=== PATIENT | female | born 1955 | race Caucasian/White ===

== ENCOUNTER 2024-06-10 04:18 | Emergency (ER) | payer OTHER ==
[2024-06-10] MEDS ORDERED: ONDANSETRON 4 MG/2 ML VIAL ONE (05:17)
[2024-06-10] MEDS ORDERED: METHYLPREDNISOLONE 125 MG INJ ONE (05:17)
[2024-06-10] MEDS ORDERED: NA CHLORIDE 0.9% 500 ML ONE (05:18)
[2024-06-10] MEDS ORDERED: MORPHINE 4 MG/ML SYR ONE (05:18)
[2024-06-10] MEDS ORDERED: NA CHLORIDE 0.9% 1,000 ML ONE (05:18)
[2024-06-10 05:45] LABS: Absolute Lymphocytes (CBC) 0.4 K/uL (0.7-4.9); Absolute Monocytes 0.9 K/uL (0.1-1.3); Absolute Neutrophil 8.9 K/uL (1.8-8.0); Basophils % 0.2 % (0-1.3); Eosinophils % 0.1 % (0-4.4); Hematocrit 41.4 % (36.0-45.0); Hemoglobin 13.9 g/dL (12.0-15.0); Lymphocytes % 4.1 % (15.3-44.8); MCH 29.7 pg (27.0-35.0); MCHC 33.7 g/dL (32.0-36.0); MCV 88.2 fL (80-100); MPV 7.5 fL (7.6-11.3); Monocytes % 8.7 % (3.3-12.3); Neutrophils % 86.9 % (41.7-73.7); Nucleated Red Blood Cells % 0.1 % (0-0); Platelets 311 thou/uL (152-406); RBC Red Blood Cell Count 4.69 M/uL (3.86-4.86); Red Cell Distribution Width 14.5 % (12.1-15.2)
[2024-06-10 05:50] LABS: PT Prothrombin Time 11.7 SECONDS (10-13.0); Protime INR 1.03
[2024-06-10 06:06] LABS: ALT/SGPT 55 U/L (13-56); AST/SGOT 55 U/L (15-37); Albumin 3.5 g/dL (3.4-5.0); Albumin/Globulin Ratio 0.9 (1.1-1.8); Alkaline Phosphatase 111 U/L (45-117); Anion Gap 9.7 mEq/L (5.0-15.0); BUN Blood Urea Nitrogen 7 mg/dL (7-18); Bicarbonate 25 mEq/L (21-32); Bilirubin Direct 0.2 mg/dL (0-0.2); Bilirubin Indirect, Calculated 0.4 mg/dL (0.2-0.8); Bilirubin Total 0.6 mg/dL (0.2-1.0); Globulin 4.1 g/dL (2.3-3.5); Glomerular Filtration Rate 89 ml/min (=/>90); Glucose Level 172 mg/dL (74-106); Magnesium 2.2 mg/dL (1.6-2.4); NT PRO-BNP 338 pg/mL (<125); Potassium 3.7 mEq/L (3.5-5.1); Protein, Total 7.6 g/dL (6.4-8.2); Sodium Level 134 mEq/L (136-145)
[2024-06-10 06:10] LABS: Thyroid Stimulating Hormone 1.56 uIU/mL (0.358-3.740)
[2024-06-10 06:11] LABS: Troponin High Sensitivity < 3.0 pg/mL (<58.9)
--- NOTE | 2024-06-10 07:41 | RAD REPORT ---
EXAM: CT CHEST, ABDOMEN AND PELVIS WITHOUT CONTRAST CLINICAL INDICATION: CHEST PAIN TECHNIQUE: CT chest, abdomen and pelvis was performed without contrast, as per department protocol. A xial, sagittal and coronal reconstructions were obtained. One or more of the following dose reduction techniques were used: Automated exposure control, adjustment of the mA and/or kV according to patient size, and/or iterative reconstruction. Unless otherwise specified, incidental findings do not require dedicated imaging follow-up. Examination is limited by the lack of intravenous contrast material. COMPARISON: No prior exam. FINDINGS: LUNGS: Emphysematous changes are present throughout the lungs. Subpleural areas of fibrosis also pres ent. PLEURA: No pleural effusion. No pneumothorax. Mild pericardial fluid. MEDIASTINUM AND LYMPH NODES: No mediastinal mass or fluid collection. Normal size mediastinal, hilar, and axillary lymph nodes. OSSEOUS STRUCTURES AND CHEST WALL: Intact. LIVER: Normal in size and contour. No focal lesion or biliary dilatation. Grossly unremarkable gallbl adder. PANCREAS: No mass, ductal dilation, or sravan-pancreatic fluid. SPLEEN: Normal size. No focal lesion. ADRENALS: Normal; no mass. KIDNEYS: Normal size and contour. No hydronephrosis. URINARY BLADDER: Normal contour. GASTROINTESTINAL TRACT: No bowel obstruction, free air, significant free fluid or abscess. Moderate s tool is retained throughout the colon. APPENDIX: Normal appendix. LYMPH NODES: No lymphadenopathy. MUSCULOSKELETAL: No acute or suspicious osseous abnormality. OTHER: IMPRESSION: No acute or significant abnormalities seen in the chest, abdomen or pelvis. Mild COPD.
--- NOTE | 2024-06-10 07:44 | RAD REPORT ---
EXAM: XR Chest, 1 View CLINICAL HISTORY: The patient is 68 years old and is Female; Chest pain. TECHNIQUE: Single view of the chest. COMPARISON: No relevant prior studies available. FINDINGS: Lungs: No pulmonary vascular congestion or consolidation. Pleural space: Unremarkable. No pneumothorax. Heart: Unremarkable. No cardiomegaly. Mediastinum: Unremarkable. Bones/joints: No acute fracture. Upper abdomen: No free air in the visualized upper abdomen. IMPRESSION: No acute cardiopulmonary process identified. Electronically signed by: Vera Perez MD 06/10/2024 07:11 AM CDT RP V2 Due to temporary technical issues with the PACS/Risk I/O reporting system, reports are being nicolette d by the in-house radiologist without review as a courtesy to ensure prompt reporting. The interpreting radiologist is fully responsible for the content of the report. Transcribed Date/Time: 06/10/2024 7:43 AM
[2024-06-10 07:55] LABS: Differential Total Cells Count 100; Lymphocytes 4 % (15-42); Monocytes 6 % (0-10); Platelet Estimate ADEQ; Segmented Neutrophils 90 % (40-80)
[2024-06-10 07:56] LABS: Blood Morphology Comment NOT SEEN (NOT SEEN)
--- NOTE | 2024-06-10 08:49 | EDPHYS ---
Physician Documentation [facility] Name: Tessy Jackson Age: 68 yrs Sex: Female : 1955 Arrival Date: 06/10/2024 Time: 04:18 Bed 17 Private MD: ED Physician Tab Dinh HPI: 06/10 04:40 This 68 yrs old Female presents to ER via Unassigned with complaints of Breathing sp4 Difficulty, Pain. 08:09 Six 8-year-old female with history of chronic tobacco use presents with acute moderate sp4 to severe chest pain. 08:09 Patient states pain onset was 6 days ago and has intensified today. Patient reports sp4 history of tobacco use half a pack a day. . Historical: - Allergies: 06:39 Iodine; aa10 06:39 Fish Containing Products; aa10 06:39 Peanut; aa10 - Immunization history:: Adult Immunizations up to date. - Infectious Disease History:: Denies. - Family history:: not pertinent. - Social history:: Smoking status: unknown. ROS: 08:09 Constitutional: Negative for fever, chills, and weight loss, positive for acute onset sp4 chest pain 08:09 All other systems are negative, Exam: 08:09 Constitutional: This is a well developed, well nourished patient who is awake, alert, sp4 and in no acute distress. Head/Face: Normocephalic, atraumatic. Eyes: Pupils equal round and reactive to light, extra-ocular motions intact. Lids and lashes normal. Conjunctiva and sclera are not injected. Cornea within normal limits. Periorbital areas with no swelling, redness, or edema. ENT: Nares patent. No nasal discharge, no septal abnormalities noted. Tympanic membranes are normal and external auditory canals are clear. Oropharynx with no redness, swelling, or masses, exudates, or evidence of obstruction, uvula midline. Mucous membranes moist. Neck: Trachea midline, no thyromegaly or masses palpated, and no cervical lymphadenopathy. Supple, full range of motion without nuchal rigidity, or vertebral point tenderness. Chest/axilla: Normal chest wall appearance and motion. Nontender with no deformity. No lesions are appreciated. Cardiovascular: Regular rate and rhythm with a normal S1 and S2. No gallops, murmurs, or rubs. Normal PMI, no JVD. No pulse deficits. Respiratory: Lungs have equal breath sounds bilaterally, clear to auscultation and percussion. No rales, rhonchi or wheezes noted. No increased work of breathing, no retractions or nasal flaring. Abdomen/GI: Soft, with normal bowel sounds. No distension or tympany. No guarding or rebound. No evidence of tenderness throughout. Back: No spinal tenderness. No costovertebral tenderness. Skin: Warm, dry with normal turgor. Normal color with no rashes, no lesions, and no evidence of cellulitis. MS/ Extremity: Pulses equal, no cyanosis. Neurovascular intact. Full, normal range of motion. Neuro: Awake and alert, GCS 15, oriented to person, place, time, and situation. Cranial nerves II-XII grossly intact. Motor strength 5/5 in all extremities. Sensory grossly intact. Psych: Awake, alert, with orientation to person, place and time. Behavior, mood, and affect are within normal limits 08:09 ECG was reviewed by the Attending Physician. EKG at 0 457 sinus tachycardia rate 116 otherwise normal Vital Signs: 06:28 BP 137 / 91; Pulse 118; Resp 20; Temp 98.6; Pulse Ox 100% on R/A; aa10 06:41 BP 130 / 90; Pulse 100; Resp 20; Pulse Ox 100% on R/A; aa10 07:30 BP 126 / 78; Pulse 91; Resp 18; Pulse Ox 98% on R/A; ph 08:30 BP 123 / 82; Pulse 89; Resp 18; Pulse Ox 99% on R/A; ph 09:30 BP 132 / 81; Pulse 89; Resp 18; Temp 97.9; Pulse Ox 98% on R/A; ph [place] Coma Score: 08:09 Eye Response: spontaneous(4). Motor Response: obeys commands(6). Verbal Response: sp4 oriented(5). Total: 15. MDM: 04:46 Medical Screening Exam initiated sp4 07:17 ED course: EXAM: XR Chest, 1 View CLINICAL HISTORY: The patient is 68 years old and is sp4 Female; Chest pain. TECHNIQUE: Single view of the chest. COMPARISON: No relevant prior studies available. FINDINGS: Lungs: No pulmonary vascular congestion or consolidation. Pleural space: Unremarkable. No pneumothorax. Heart: Unremarkable. No cardiomegaly. Mediastinum: Unremarkable. Bones/joints: No acute fracture. Upper abdomen: No free air in the visualized upper abdomen. IMPRESSION: No acute cardiopulmonary process identified.. 08:06 Differential diagnosis: Chronic Obstructive Pulmonary Disease Myocardial Infarction ms3 pneumonia. 08:07 Transition of care: Care assumed from Basil Dong MD. ms3 08:11 Transition of care: After a detail discussion of the patient's case, care is sp4 transferred to Tab Dinh DO. ED course: GASTROINTESTINAL TRACT: No bowel obstruction, free air, significant free fluid or abscess. Moderate stool is retained throughout the colon. APPENDIX: Normal appendix. LYMPH NODES: No lymphadenopathy. MUSCULOSKELETAL: No acute or suspicious osseous abnormality. OTHER: IMPRESSION: No acute or significant abnormalities seen in the chest, abdomen or pelvis. Mild COPD. Reported By: Wilmer Palacios. 08:52 Data reviewed: vital signs, nurses notes, lab test result(s). ms3 08:52 I considered the following discharge prescriptions or medication management in the al3 emergency department Medications were administered in the Emergency Department. See MAR. Independent interpretation of the following test(s) in the Emergency Department EKG: See my EKG interpretation above. Counseling: I had a detailed discussion with the patient and/or guardian regarding the historical points, exam findings, and any diagnostic results supporting the discharge/admit diagnosis, lab results, radiology results, the need for outpatient follow up, to return to the emergency department if symptoms worsen or persist or if there are any questions or concerns that arise at home. ED course: On reevaluation patient symptoms have improved, patient is alert and orient x 4, in no apparent distress, nontoxic-appearing. Discussed second troponin being normal. Patient to follow-up with primary care physician and Dr. Lorenz in 2 to 3 days. All questions were answered. Return precautions discussed include worsening symptoms, or any other concerns. Patient requesting pain medications and discussed Tylenol and ibuprofen for pain. Patient requesting medication to help her sleep and recommended Benadryl. Discussed OTC Benadryl.. 06/10 05:09 Order name: Basic Metabolic Panel; Complete Time: 07:54 sp4 06/10 05:09 Order name: CBC with Diff; Complete Time: 07:59 sp4 06/10 05:09 Order name: LFT's; Complete Time: 07:54 sp4 06/10 05:09 Order name: Magnesium; Complete Time: 07:54 sp4 06/10 05:09 Order name: NT PRO-BNP; Complete Time: 07:54 sp4 06/10 05:09 Order name: PT-INR; Complete Time: 07:54 sp4 06/10 05:09 Order name: Troponin HS; Complete Time: 07:54 sp4 06/10 05:11 Order name: TSH; Complete Time: 07:54 sp4 06/10 05:11 Order name: T4 Free; Complete Time: 07:54 sp4 06/10 05:48 Order name: Manual Differential; Complete Time: 07:59 EDMS 06/10 07:55 Order name: Troponin High Sensitivity; Complete Time: 08:47 ms3 06/10 05:09 Order name: XRAY Chest (1 view); Complete Time: 07:54 sp4 06/10 06:48 Order name: Chest Abd Pelvis Wo Con; Complete Time: 07:54 EDMS 06/10 05:09 Order name: Cardiac monitoring; Complete Time: 05:22 sp4 06/10 05:09 Order name: EKG - Nurse/Tech; Complete Time: 05:09 sp4 06/10 05:09 Order name: IV Saline Lock; Complete Time: 05:09 4 06/10 05:09 Order name: Labs collected and sent; Complete Time: 05:09 sp4 06/10 05:09 Order name: O2 Per Protocol; Complete Time: 05:09 sp4 06/10 05:09 Order name: O2 Sat Monitoring; Complete Time: 05:09 EC:57 Rate is 116 beats/min. Rhythm is regular, Sinus tachycardia. QRS [place] is Normal. [place] sp4 interval is normal. QRS interval is normal. QT interval is normal. No Q waves. T waves are Inverted in leads V2, V3. No ST changes noted. Clinical impression: No evidence of ischemia. Interpreted by me. Reviewed by me. Administered Medications: 05:29 Drug: NS 0.9% IV 500 ml 500 ml IV at 1 bolus once; to be given as a bolus over 30 aa10 minutes Volume: 500 ml; Route: IV; Rate: 1 bolus; Site: left antecubital; 05:29 Drug: NS 0.9% IV 1000 ml IV at 125 ml/hr once; to be given as a bolus over 60 minutes aa10 Route: IV; Rate: 125 ml/hr; Site: left antecubital; 09:42 Follow up: Response: No adverse reaction; IV Status: Completed infusion ph 05:29 Drug: morphine IVP or IV 4 mg IVP once over 4 mins Route: IVP; Infused Over: 4 mins; aa10 Site: left antecubital; 09:42 Follow up: Response: No adverse reaction ph 05:29 Drug: Ondansetron IVP 4 mg IVP once; over 2 minutes Route: IVP; Site: left antecubital; aa10 09:42 Follow up: Response: No adverse reaction ph 05:36 Not Given (Patient Refused): [id number] mg IVP once aa10 Disposition Summary: 06/10/24 08:48 Discharge Ordered Notes: Location: Home ms3 Condition: Stable ms3 Diagnosis - Chest pain, unspecified ms3 Followup: ms3 - With: Hilario Islas DO - When: 2 - 3 days - Reason: Recheck today's complaints Followup: ms3 - With: Braxton Lorenz MD - When: 2 - 3 days - Reason: Recheck today's complaints Discharge Instructions: - Discharge Summary Sheet ms3 - Nonspecific Chest Pain, Adult ms3 Forms: - Medication Reconciliation Form ms3 - Antibiotic Education ms3 - Prescription Opioid Use ms3 - Patient Portal Instructions ms3 - Leadership Thank You Letter ms3 Prescriptions: - Cyclobenzaprine 5 mg Oral Tablet - take 1 tablet ORAL route 3 times per day As needed; 15 tablet; Refills: 0, ms3 Product Selection Permitted Signatures: Dispatcher [employer] EDTab Remy DO DO ms3 Basil Dong MD MD sp4 Mary Joseph RN RN aa10 Corine Luis RN ph Corrections: (The following items were deleted from the chart) 05:09 05:09 BASIC METABOLIC PANEL+C.LAB.BRZ ordered. EDMS EDMS 05:09 05:09 CBC+H.LAB.BRZ ordered. EDMS EDMS 05:09 05:09 HEPATIC FUNCTION+C.LAB.BRZ ordered. EDMS EDMS 05:09 05:09 MAGNESIUM+C.LAB.BRZ ordered. EDMS EDMS 05:09 05:09 PROBNP+C.LAB.BRZ ordered. EDMS EDMS 05:09 05:09 PROTIME (+INR)+COAG.LAB.BRZ ordered. EDMS EDMS 05:09 05:09 Troponin High Sensitivity+C.LAB.BRZ ordered. EDMS EDMS 05:09 05:09 Chest Single View+RAD.RAD.BRZ ordered. EDMS EDMS 05:09 05:09 Chest For PE Angio+CT.RAD.BRZ ordered. EDMS EDMS 07:55 07:55 Troponin High Sensitivity+C.LAB.BRZ ordered. EDMS EDMS
--- NOTE | 2024-06-10 08:49 | ER ---
Nurse's Notes [facility] Name: Tessy Jackson Age: 68 yrs Sex: Female : 1955 Arrival Date: 06/10/2024 Time: 04:18 Bed 17 Private MD: Diagnosis: Chest pain, unspecified Presentation: 06/10 06:28 Chief complaint: Patient states: breathing difficulty following cleaning. Coronavirus aa10 screen: Vaccine status: Patient reports being unvaccinated. Client denies travel out of the [place] in the last 14 days. At this time, the client does not indicate any symptoms associated with coronavirus-19. Ebola Screen: Patient negative for fever greater than or equal to 101.5 degrees Fahrenheit, and additional compatible Ebola Virus Disease symptoms Patient denies exposure to infectious person. Patient denies travel to an Ebola-affected area in the 21 days before illness onset. No symptoms or risks identified at this time. Initial Sepsis Screen: Does the patient meet any 2 criteria? No. Patient's initial sepsis screen is negative. Does the patient have a suspected source of infection? No. Patient's initial sepsis screen is negative. 06:28 Method Of Arrival: Ambulatory aa10 06:38 Risk Assessment: Do you want to hurt yourself or someone else? Patient reports no aa10 desire to harm self or others. Onset of symptoms was June 04, 2024. 06:38 Acuity: GÉNESIS 3 aa10 Triage Assessment: 06:40 General: Appears in no apparent distress. comfortable, slender, well groomed, well aa10 developed, Behavior is calm, cooperative, appropriate for age. Pain: Complains of pain in chest Pain does not radiate. Neuro: No deficits noted. Level of Consciousness is awake, alert, obeys commands, Oriented to person, place, time, situation, Appropriate for age [place] are equal bilaterally Moves all extremities. Gait is steady, Speech is normal, Facial symmetry appears normal, Pupils are PERRLA. Respiratory: No deficits noted. Reports shortness of breath on exertion Onset: The symptoms/episode began/occurred gradually, the patient has mild shortness of breath. Historical: - Allergies: 06:39 Iodine; aa10 06:39 Fish Containing Products; aa10 06:39 Peanut; aa10 - Immunization history:: Adult Immunizations up to date. - Infectious Disease History:: Denies. - Family history:: not pertinent. - Social history:: Smoking status: unknown. Screenin:43 [facility] ED Fall Risk Assessment (Adult) History of falling in the last 3 months, aa10 including since admission No falls in past 3 months (0 pts) Confusion or Disorientation No (0 pts) Intoxicated or Sedated No (0 pts) Impaired Gait No (0 pts) Mobility Assist Device Used No (0 pt) Altered Elimination No (0 pt) Score/Fall Risk Level 0 - 2 = Low Risk Oriented to surroundings, Maintained a safe environment, Educated pt \T\ family on fall prevention, incl call for assistance when getting out of bed, Assessed \T\ reinforced patient's understanding of fall precautions, Provided non-skid footwear. Abuse screen: Denies threats or abuse. Denies injuries from another. Nutritional screening: No deficits noted. Tuberculosis screening: No symptoms or risk factors identified. Assessment: 06:42 Reassessment: see triage assessement. Cardiovascular: No deficits noted. Reports None aa10 Rhythm is regular. Respiratory: Airway is patent Respiratory effort is even, Breath sounds are clear bilaterally. 07:30 Reassessment: Patient appears in no apparent distress at this time. Patient and/or ph family updated on plan of care and expected duration. Pain level reassessed. Patient is alert, oriented x 3, equal unlabored respirations, skin warm/dry/pink. Vital Signs: 06:28 BP 137 / 91; Pulse 118; Resp 20; Temp 98.6; Pulse Ox 100% on R/A; aa10 06:41 BP 130 / 90; Pulse 100; Resp 20; Pulse Ox 100% on R/A; aa10 07:30 BP 126 / 78; Pulse 91; Resp 18; Pulse Ox 98% on R/A; ph 08:30 BP 123 / 82; Pulse 89; Resp 18; Pulse Ox 99% on R/A; ph 09:30 BP 132 / 81; Pulse 89; Resp 18; Temp 97.9; Pulse Ox 98% on R/A; ph [place] Coma Score: 08:09 Eye Response: spontaneous(4). Motor Response: obeys commands(6). Verbal Response: sp4 oriented(5). Total: 15. ED Course: 04:25 Patient arrived in ED. gm2 04:40 aBsil Dong MD is Attending Physician. sp4 05:09 Initial lab(s) drawn, by me, sent to lab. EKG done, by ED staff. Inserted saline lock: vk 20 gauge in right antecubital area, using aseptic technique. Blood collected. Flushed with 10 mL NS. 05:20 XRAY Chest (1 view) In Process Unspecified. EDMS 05:22 Basic Metabolic Panel Sent. vk 05:22 CBC with Diff Sent. vk 05:22 LFT's Sent. vk 05:22 Magnesium Sent. vk 05:22 NT PRO-BNP Sent. vk 05:22 PT-INR Sent. vk 05:22 Troponin HS Sent. vk 06:39 Triage completed. aa10 06:42 Arm band placed on right wrist. aa10 06:45 No provider procedures requiring assistance completed. aa10 06:45 Patient has correct armband on for positive identification. Allergy band placed. Fall aa10 risk band placed. Placed in gown. Bed in low position. Call light in reach. Side rails up X2. Provided Education on: about plan of care. 06:59 Chest Abd Pelvis Wo Con In Process Unspecified. EDMS 07:53 Corine Luis, RN is Primary Nurse. ph 08:06 Attending Physician role handed off by Basil Dong MD ms3 08:06 Tab Dinh DO is Attending Physician. ms3 08:08 Tab Dinh DO is Attending Physician. ms3 08:28 Troponin High Sensitivity Sent. rk3 08:47 Hilario Islas DO is Referral Physician. ms3 08:47 Braxton Lorenz MD is Referral Physician. ms3 09:41 IV discontinued, intact, bleeding controlled, No redness/swelling at site. Pressure ph dressing applied. Administered Medications: 05:29 Drug: NS 0.9% IV 500 ml 500 ml IV at 1 bolus once; to be given as a bolus over 30 aa10 minutes Volume: 500 ml; Route: IV; Rate: 1 bolus; Site: left antecubital; 05:29 Drug: NS 0.9% IV 1000 ml IV at 125 ml/hr once; to be given as a bolus over 60 minutes aa10 Route: IV; Rate: 125 ml/hr; Site: left antecubital; 09:42 Follow up: Response: No adverse reaction; IV Status: Completed infusion ph 05:29 Drug: morphine IVP or IV 4 mg IVP once over 4 mins Route: IVP; Infused Over: 4 mins; aa10 Site: left antecubital; 09:42 Follow up: Response: No adverse reaction ph 05:29 Drug: Ondansetron IVP 4 mg IVP once; over 2 minutes Route: IVP; Site: left antecubital; aa10 09:42 Follow up: Response: No adverse reaction ph 05:36 Not Given (Patient Refused): [id number] mg IVP once aa10 Medication: 06:45 VIS not applicable for this client. aa10 Outcome: 08:48 Discharge ordered by . ms3 09:41 Discharged to home via wheelchair, with friend, ph 09:41 Condition: good 09:41 Discharge instructions given to patient, friend, Instructed on discharge instructions, follow up and referral plans. medication usage, Demonstrated understanding of instructions, follow-up care, medications, Prescriptions given X 1, 09:43 Patient left the ED. ph Signatures: Dispatcher [employer] EDCorine Vasquez RN RN ph Tab Dinh, DO ms3 Basil Dong MD MD sp4 Harini Cabrera gm2 Renetta Javed Ayoku, RN RN aa10 Radha Broderick rk3 Corrections: (The following items were deleted from the chart) 05:36 05:29 MethylPrednisoLONE IVP 125 mg IVP in left antecubital aa10 aa10
--- NOTE | 2024-06-10 12:26 | EKG ---
Test Date: 2024-06-10 Test Time: 04:57:32 Discount Clerk: SASCHA MEASUREMENT RESULTS: Intervals: Rate: 116 WA: 130 QRSD: 86 QT: 332 QTc: 461 [place]: P: 80 WA: 130 QRS: 78 T: 74 INTERPRETIVE STATEMENTS: Sinus tachycardia T wave abnormality, consider anterior ischemia Abnormal ECG Compared to ECG 07/17/2006 19:13:52 T-wave abnormality now present Possible ischemia now present Sinus rhythm no longer present Atrial premature complex(es) no longer present Electronically Signed On 06-10-24 12:24:52 CDT by David Kinney
[2024-06-10 16:47] VITALS: BP 132/81; TEMP 97.9; O2SAT 98
== END 2024-06-10 09:43 | disposition home or self-care (01) ==
LOC: ER 04:18
DX: R07.9 Chest pain, unspecified (principal)
CPT/HCPCS: 96361; 93005; 85025; 80048; 36415; 83735; 85610; 80076; 84443; 84484 ×2; 84439; 83880; 71250; 74176; 71045; 96375; 96374; 99284; J2919; J2405; J7040; J7030